=== PATIENT | female | born 1980 | race Caucasian/White ===

== ENCOUNTER 2020-04-06 12:37 | Emergency (ER) | payer BC ==
[~2020-04-06] VITALS: Ht 157.5 cm; Wt 81.6 kg
[2020-04-06 13:08] VITALS: Ht 157.5 cm; Wt 81.6 kg
[2020-04-06 14:28] LABS: BASOPHIL % 0.4 % (0-2); RED CELL DISTRIBUTION WIDTH 14.4 % (11.5-14.5)
[2020-04-06 14:30] LABS: PLATELET COUNT 433 x10^3mcL (130-400)
[2020-04-06 17:00] VITALS: BP 110/57
== END 2020-04-06 17:00 | disposition home or self-care (01) ==
LOC: ED 12:37
PROVIDERS: Emergency Medicine
DX: L76.32 Postprocedural hematoma of skin and subcutaneous tissue following other procedure (principal); D50.0 Iron deficiency anemia secondary to blood loss (chronic); R55 Syncope and collapse; Z98.890 Other specified postprocedural states
CPT/HCPCS: Q9967